=== PATIENT | female | born 1990 | race Native Hawaiian/Other Pacific Islander ===

== ENCOUNTER 2021-08-04 07:50 | Observation (INO) | payer OTHER, BC, SELFPAY ==
--- NOTE | 2021-08-04 08:25 | PM.CN ---
History of Present Illness Consult details Date Patient Seen: 08/04/21 Time Patient Seen: 08:58 Chief complaint: OBS Reason for consult: 37 week gestation with breech presentation Requesting provider: Ju Velasquez Narrative: Patient is a 31-year-old G1 with EDC of 08/23/21 with persistent breech presentation who presents for attempt at external cephalic version. Review of Systems Review of Systems Narrative: Patient denies leakage of fluid. No regular contractions. Good movement. Exam Vital Signs (past 8 hours): Blood pressure 125/79, temperature 36.3? pulse 70 Narrative Exam Narrative: Abdomen is soft, nontender. Fetus is breech. Ultrasound confirms breech presentation with anterior placenta, normal amniotic fluid. Nonstress test heart rate baseline 120 with accelerations, no decelerations and good [id number] variability. Consent form for version was signed with the patient. Risk of rupture membranes, onset of labor, abruption of placenta that could require delivery of baby either by section or if the baby turns vertex possible vaginal delivery. Decrease in heart rate that could result in emergent section. Consent form signed and questions answered. Patient was given terbutaline 0.25 mg subQ. Attempt at a forward roll followed by a backward roll were unsuccessful at moving the baby. Assessment & Plan Assessment and plan (1) 37 weeks gestation of : Status: Acute (2) Breech presentation with problem: Qualifiers: Fetus number: single or unspecified fetus Qualified Code(s): O32.1XX0 - Maternal care for breech presentation, not applicable or unspecified Status: Acute Assessment & Plan narrative: Patient with failed attempt at version for breech presenentation. Patient was monitored for 1 hour after attempted version. NST is reactive. No contractions. No vaginal bleeding or abdominal pain. Patient was discharged home. Precautions reviewed with the patient to call for increasing abdominal pain, vaginal bleeding, contractions, leakage of fluid, decreased movement. Follow-up with nurse pocket stitcher. Jose David Velasquez CNM Time Spent With Patient Critical Care time: I spent a total of [] minutes of critical care time on this patient's care today; this time is exclusive of procedural time.
[2021-08-04] MEDS: TERBUTALINE 1 MG/ML VIAL 0.25 MG SUBCUT (08:57)
== END 2021-08-04 10:40 | disposition home or self-care (01) ==
PROVIDERS: Admitting Provider Specialist; Referring Provider Specialist; Visit Provider Specialist
DX: O32.1XX0 Maternal care for breech presentation, not applicable or unspecified (principal); Z3A.37 37 weeks gestation of pregnancy
CPT/HCPCS: 59025; 59050; 59412; 76815; 96372; G0378; G0379